=== PATIENT | male | born 1955 | race Caucasian/White ===

== ENCOUNTER 2022-04-05 12:36 | Day surgery (SDC) | payer MEDICARE, OTHER ==
[~2022-04-05] VITALS: Ht 188 cm; Wt 68.3 kg
[~2022-04-05 12:36] MED LIST: ALBU90OI INH
--- NOTE | 2022-04-05 14:34 | NUR ---
04/05/22 1434 Antoine Castro HISTORY, CHART, MEDICATIONS AND ALLERGIES REVIEWED BEFORE START OF PROCEDURE. PATIENT CONFIRMS NPO STATUS AND AGREES WITH SCHEDULED PROCEDURE. 3-LEAD EKG REVIEWED WITH PHYSICIAN PRIOR TO START OF PROCEDURE. MONITOR INTACT WITH CONTINUOUS PULSE OXIMETRY,CAPNOGRAPHY, 3-LEAD EKG, INTERMITTENT BP. SUPPLEMENTAL O2 TO BE TITRATED THROUGHOUT PROCEDURE TO MAINTAIN O2 SATURATION ABOVE 90%. PATIENT DETERMINED TO BE ASA APPROPRIATE FOR PROPOFOL SEDATION PRIOR TO START OF PROCEDURE BY DR. LUZ.
--- NOTE | 2022-04-05 15:37 | NUR ---
Patient up to Ambulate independently. Gait steady. Discharge instructions reviewed with patient. Patient verbalizes understanding. Copy given to patient to take home. Patient States Post-Procedure ride home has been arranged. Discharged via wheelchair to private car for ride home.
== END 2022-04-05 23:54 | disposition home or self-care (01) ==
LOC: ORSCMMR 12:36 → ORD 14:00 → ORSCMMR 23:54
PROVIDERS: Surgery
PROC: 0DBK8ZX Excision of Ascending Colon, Via Natural or Artificial Opening Endoscopic, Diagnostic (ICD-10-PCS; principal; 2022-04-05 14:00)
PROC: 0DBN8ZX Excision of Sigmoid Colon, Via Natural or Artificial Opening Endoscopic, Diagnostic (ICD-10-PCS; principal; 2022-04-05 14:00)
DX: Z12.11 Encounter for screening for malignant neoplasm of colon (principal); D12.2 Benign neoplasm of ascending colon; K63.5 Polyp of colon; K64.4 Residual hemorrhoidal skin tags; K57.30 Diverticulosis of large intestine without perforation or abscess without bleeding; K64.8 Other hemorrhoids; J44.9 Chronic obstructive pulmonary disease, unspecified; F17.210 Nicotine dependence, cigarettes, uncomplicated; Z79.899 Other long term (current) drug therapy; Z79.82 Long term (current) use of aspirin
CPT/HCPCS: 88305; J2704; J7120

== ENCOUNTER → 2024-04-09 | Outpatient (CLI) | payer MEDICARE, OTHER | END | disposition home or self-care (01) | LOC: LAB SHORT 14:48 → LAB 14:48 | DX: L08.9 Local infection of the skin and subcutaneous tissue, unspecified (principal) | CPT/HCPCS: 87070; 87075; 87205 ==

== ENCOUNTER 2024-09-17 09:42 | Day surgery (SDC) | payer MEDICARE, OTHER ==
[~2024-09-17] VITALS: Ht 188 cm; Wt 73.5 kg
[2024-09-17] VITALS (10 sets, daily range): BP systolic 98–138; BP diastolic 65–94
[~2024-09-17 09:42] MED LIST changes: +ASPI81CH PO; +ATOR80 PO; +EZET10 PO
[2024-09-17] MEDS ORDERED: Verapamil HCL 2.5 MG/ML 2ML Injection ONE (09:52)
[2024-09-17] MEDS ORDERED: NS 1,000 ML IV ONE ×2 (09:52→10:06)
[2024-09-17] MEDS ORDERED: Heparin Sodium 1000 Units/ML 10ML MDV ONE (09:52)
[2024-09-17] MEDS ORDERED: NS 250 ML IV ONE (09:52)
[2024-09-17] MEDS ORDERED: Nitroglycerin 2 MG/20 ML BTL ONE (09:53)
[2024-09-17] MEDS ORDERED: FentaNYL Citrate 50 MCG/ML 2 ML Injection ONE (10:06)
[2024-09-17] MEDS ORDERED: Midazolam HCl 1MG / ML 2ML Vial ONE (10:06)
--- NOTE | 2024-09-17 14:15 | NUR ---
PT BACK TO RECOVERY ROOM IN [facility]CLINER. TR BAND TO R WRIST. HANDS PURPLE AND COOL. 2CC AIR TAKEN OUT. NO BLEEDING.
--- NOTE | 2024-09-17 14:41 | NUR ---
PT GIVEN SANDWICH, COFFEE AND WATER. PT DENIES NEEDS.
--- NOTE | 2024-09-17 15:31 | NUR ---
Began deflating TR band
--- NOTE | 2024-09-17 15:35 | NUR ---
small amount of bleeding from site. 2cc replaced into TR band. no hematoma noted.
--- NOTE | 2024-09-17 15:50 | NUR ---
TR BAND FULLY DEFLATED.
--- NOTE | 2024-09-17 16:15 | NUR ---
DR NATHAN IN TO UPDATE PT AND SPOUSE.
--- NOTE | 2024-09-17 16:43 | NUR ---
IV D/C CATHETER INTACT. TR BAND REMOVED AND CLOTH DOT PLACED. PT AND SPOUSE VERBALIZE D/C INSTRUCTIONS. PT WHEELED OUT OF DEPT TO SPOUSE CAR. D/C INSTRUCTIONS IN HAND UPON DEPARTURE.
== END 2024-09-17 16:45 | disposition home or self-care (01) ==
LOC: MHTC 09:42
DX: E11.51 Type 2 diabetes mellitus with diabetic peripheral angiopathy without gangrene (principal); I25.10 Atherosclerotic heart disease of native coronary artery without angina pectoris; J44.9 Chronic obstructive pulmonary disease, unspecified; E78.5 Hyperlipidemia, unspecified; Z75.0 Medical services not available in home; Z88.0 Allergy status to penicillin; Z88.8 Allergy status to other drugs, medicaments and biological substances; Z79.82 Long term (current) use of aspirin; Z79.899 Other long term (current) drug therapy
CPT/HCPCS: 76937; 85347; 92978; 93454; 99152; 99153; C1753; C1769; C1887; C1894; J1644; J2250; J3010; J7030; J7050; Q9967

== ENCOUNTER 2024-11-23 07:45 | Emergency (ER) | payer MEDICARE, OTHER ==
[~2024-11-23] VITALS: Ht 188 cm; Wt 73.0 kg
[2024-11-23] MEDS ORDERED: Ketorolac Tromethamine 15mg Vial IM ONE (08:30)
[2024-11-23] MEDS ORDERED: Lidocaine 4% 1 Patch TOP ONE (08:30)
[2024-11-23] MEDS ORDERED: LIDO700A20 TOP (09:49)
[2024-11-23 10:20] VITALS: BP 118/74
== END 2024-11-23 10:22 | disposition home or self-care (01) ==
LOC: ER 07:45
DX: M25.511 Pain in right shoulder (principal); Z88.0 Allergy status to penicillin; Z88.1 Allergy status to other antibiotic agents; Z79.82 Long term (current) use of aspirin; Z79.899 Other long term (current) drug therapy; E78.5 Hyperlipidemia, unspecified; F17.200 Nicotine dependence, unspecified, uncomplicated
CPT/HCPCS: 73030; 96372; 99283-25; A9270; J1885